=== PATIENT | male | born 1960 | race Caucasian/White ===

== ENCOUNTER → 2024-01-01 06:31 | Day surgery (SDC) | payer OTHER, SELFPAY | LOC: GI 06:31 | PROVIDERS: ATTENDING PHYSICIAN Specialist | DX: Z12.11 Encounter for screening for malignant neoplasm of colon (principal); Z86.010 Personal history of colon polyps; K57.30 Diverticulosis of large intestine without perforation or abscess without bleeding | CPT/HCPCS: 45380; 88305 ==

== ENCOUNTER → 2024-09-10 09:28 | Outpatient (REF) | payer OTHER, SELFPAY | LOC: RCS 09:28 | PROVIDERS: ATTENDING PHYSICIAN Internal Medicine Interventional Cardiology; FAMILY PHYSICIAN Physician Assistant Medical | DX: I35.0 Nonrheumatic aortic (valve) stenosis (principal) | CPT/HCPCS: 93306 ==

== ENCOUNTER 2024-12-04 11:32 | Emergency (ER) | payer OTHER, SELFPAY ==
[2024-12-04 11:36] VITALS: BP 157/111
--- NOTE | 2024-12-04 12:23 | ED.GENMED ---
History of Present Illness
General
Chief Complaint: Musculo-Skeletal Complaint
Source: patient
Exam Limitations: none
Time Seen by Provider: 12/04/24 12:07
History of Present Illness
History of Present Illness:
64yoM with a history of coronary artery disease presenting for evaluation of right foot pain x 2 days. Patient woke up 2 days ago and noticed pain in the back of his heel. He denies any trauma to the area. He returned home yesterday from a
conference in [place]. He admits to increased walking during his trip and was walking on the beach so is unsure if that might have tweaked something. The pain is worst with the first step in the morning and gradually improves with ambulation. He has
been using Tylenol and ice with some relief. No leg swelling or calf pain.
Past History
Past History
ED Past Medical History: GERD, HTN, Hypercholesterolemia and MT
ED Past Surgical History: None and Orthopedic (left ankle fracture)
Social History
Personal:
Living: with family
Employment: Employed
Phy Exam
General Physical Exam
General Presentation: well appearing and no apparent distress
General age: appears stated age
General Skin: warm and dry
General Habitus: normal
General Mental: alert
ENT Exam
ENT Exam: normocephalic
Neurological Exam
Neurological Exam: alert
Musculoskeletal Exam
Musculoskeletal Exam: other (R foot: There is tenderness posterior to the lateral malleolus with mild swelling. No skin changes. No tenderness of Achilles. ROM of ankle normal although pain is elicited with dorsiflexion. 2+ DP pulse and sensation
intact. )
Skin Exam
Skin Exam: normal color and warm/dry
Psychiatric Exam
Psychiatric Exam: normal mood/affect
Course
Orders/Labs/Results
Orders:
Orders
12/04/24 11:41
Foot, Right 3 View [CR Foot - Right Min 3 Views] Urgent
Comment:
Reason For Exam: pain
Vital Signs
Initial and Last Documented VS:
Initial Vital Signs
Temp Pulse Resp BP Pulse Ox
98.4 F 70 18 157/111 98
12/04/24 11:36 12/04/24 11:36 12/04/24 11:36 12/04/24 11:36 12/04/24 11:36
Last Documented Vital Signs
Temp Pulse Resp BP Pulse Ox
98.4 F 70 16 157/111 98
12/04/24 11:36 12/04/24 11:36 12/04/24 13:14 12/04/24 11:36 12/04/24 11:36
MDM/Problems Addressed
Differential Diagnosis Includes:
64yoM here with R heel pain x 2 days. Denies trauma but was walking a lot on a trip to [place]. There is tenderness and mild swelling posterior to the lateral malleolus. He denies calf pain and there is no pitting edema on exam. RLE is
neurovascularly intact. Differential diagnosis includes: fracture, sprain, tendonitis, plantar fasciitis
X-rays of R foot obtained which appear normal per my interpretation. Suspect tendonitis vs. plantar fasciitis. Supportive care discussed including rest, ice, elevation, and PRN Tylenol. Advised f/u with podiatry. Patient discharged in stable
condition.
*Critical Care Note
Total Time (30-74mins, 75-104mins- exclusive of procedures): Not Applicable
ED Attending Note
-
Portions of this chart may have been created with voice recognition software.� Occasional wrong word or��sound alike� substitutions may have occurred due to the inherent limitations of voice recognition software.
Discharge Plan
Departure
Patient Disposition: Home (Routine Discharge)
Date of Disposition: 12/04/24
Time of Disposition: 14:02
Patient with high blood pressure during this ER visit?: Yes
Discharge Problem:
Pain of right heel
Instructions: Plantar fasciitis
Prescriptions:
No Action
carvedilol 6.25 MG tablet
6.25 mg PO BID
aspirin 81 MG tablet,delayed release (DR/EC)
81 mg PO DAILY Qty: 0 0RF
lisinopril 20 mg Tablet
20 mg PO BID
ezetimibe [Zetia] 10 mg Tablet
10 mg PO DAILY
Brilinta 90 mg Tablet
90 mg PO BID Qty: 180 5RF
nitroglycerin 0.4 mg Tablet, Sublingual
0.4 mg sublingual [id number] PRN (Reason: chest pain) Qty: 25 5RF
atorvastatin 80 MG tablet
80 mg PO QPM Qty: 30 6RF
Referrals:
Syl Ramsey PA-C [Family Provider] -
Negriot Lowery DPM [Active] -
Activity Restrictions/Additional Instructions:
Rest your foot, elevate, ice, and avoid aggravating activities. Take Tylenol as needed for pain.
Please follow-up with podiatry.
Interventions
Interventions:
*Risk Screen - Suicide Last Done: 12/04/24 11:36
*General Assessment Last Done: 12/04/24 11:36
*Neglect/Abuse Screening Last Done: 12/04/24 11:36
ED- Fall Risk Assessment Last Done: 12/04/24 14:12
*ED COVID-19 Vaccine History Last Done: 12/04/24 13:14
*Nursing Disposition Last Done: 12/04/24 14:12
ED-Musculoskeletal Assessment Last Done: 12/04/24 13:12
Discharge Date and Time
Discharge Date/Time: 12/04/24 14:13
Print Language: RUSSIAN
== END 2024-12-04 14:13 | disposition home or self-care (01) ==
LOC: EMR 11:32
PROVIDERS: EMERGENCY PHYSICIAN Student in an Organized Health Care Education/Training Program; FAMILY PHYSICIAN Physician Assistant Medical
DX: M79.671 Pain in right foot (principal); I25.10 Atherosclerotic heart disease of native coronary artery without angina pectoris; I10 Essential (primary) hypertension; K21.9 Gastro-esophageal reflux disease without esophagitis; E78.00 Pure hypercholesterolemia, unspecified; I25.2 Old myocardial infarction
CPT/HCPCS: 99283; 73630

== ENCOUNTER → 2025-06-01 11:01 | Outpatient (REF) | payer MEDICARE, OTHER, SELFPAY | LOC: HWRAD 11:01 | PROVIDERS: ATTENDING PHYSICIAN Family Medicine | DX: M54.50 Low back pain, unspecified (principal) | CPT/HCPCS: 72110 ==

== ENCOUNTER 2025-06-28 17:49 | Emergency (ER) | payer MEDICARE, OTHER, SELFPAY ==
[2025-06-28 17:54] VITALS: BP 157/106
[2025-06-28 18:18] LABS: Hematocrit 44.4 % (39.0-52.0); Hemoglobin 15.3 g/dL (13.0-18.0); Mean Corp Hgb Conc. 34.5 g/dL (33.0-37.0); Mean Corpuscular Volume 87.4 fL (80.0-94.0); Nucleated Red Blood Cells % 0 % (-); Platelet Count 250 10^3/uL (130-400); Red Cell Dist. Width 12.6 % (11.5-14.5)
[2025-06-28 18:46] LABS: ALT (SGPT) 43 U/L (0-50); AST (SGOT) 27 U/L (17-59); Albumin 4.4 g/dl (3.5-5.0); Alkaline Phosphatase 86 U/L (38-126); Blood Urea Nitrogen 15 mg/dl (9-20); Calcium 9.5 mg/dl (8.4-10.2); Carbon Dioxide 26 mmol/L (22-30); Chloride 100 mmol/L (98-107); Glucose 109 mg/dl (70-99); Potassium 4.4 mmol/L (3.5-5.1); Sodium 132 mmol/L (135-145); Total Protein 7.3 g/dl (6.3-8.2); eGFR > 60.00
[2025-06-28 18:58] VITALS: BMI 28.4
[2025-06-28 18:58] LABS: Troponin I < 0.012 ng/ml
[2025-06-28 19:01] VITALS: BP 177/94
[2025-06-28 19:13] VITALS: BP 166/95
[2025-06-28 20:00] VITALS: BP 138/93
--- NOTE | 2025-06-28 20:33 | ED.GENMED ---
History of Present Illness
General
Chief Complaint: Blood Pressure Problem
Source: patient
Exam Limitations: none
Time Seen by Provider: 06/28/25 20:30
Nursing documentation reviewed up to this point in time: agreed with
History of Present Illness
History of Present Illness:
The patient is a pleasant 65-year-old man with a past medical history of coronary artery disease and high blood pressure who reports that earlier today when he was in the [place], he experienced lightheadedness, sweating and shaking chills. He
reports that he took his blood pressure and the systolic was in the 180s, which is extremely high for him. He reports he did not have any chest pain at the time. He did not experience any shortness of breath. He denies any vision changes. He
reports a mild headache but nothing concerning. He denies weakness and numbness. Patient reports that a few days ago he had 1 day of multiple episodes of watery diarrhea without blood or mucus. At the time, he reports lower abdominal pains and
bloating. He reports there is a good chance he is dehydrated but he is now able to eat and drink. Patient reports he is also under tremendous stress, as he recently decided to separate from his spouse. Patient reports a month ago his pancreas
enzyme was found to be elevated so he is requesting that we check it. However, he denies current abdominal pain, nausea and vomiting.
Past History
Past History
ED Past Medical History: CAD, GERD, HTN, Hypercholesterolemia and MD
ED Past Surgical History: Orthopedic (left ankle fracture)
Social History
Tobacco: Non-smoker
Alcohol: Other
Drug: None
Personal: Other
Living: with family
Employment: Employed
Family History
Family History: Other
Review of Systems
Review of Systems
Allergies reviewed?: Yes
All Other Systems: ROS reviewed and negative except as documented in HPI and ROS
Constitutional: Reports no symptoms
EENT: Reports no symptoms
Respiratory: Reports no symptoms
Cardiac: Reports no symptoms and other (Lightheadedness)
ABD/GI: Reports abdominal pain and diarrhea
: Reports no symptoms
Musculoskeletal: Reports no symptoms
Skin: Reports no symptoms
Neurological: Reports no symptoms
Endocrine: Reports no symptoms
Hematologic/Lymphatic: Reports no symptoms
Psychiatric: Reports no symptoms
Phy Exam
Physical Exam
Physical Exam:
Physical Exam
General: no apparent distress, not acutely ill. Uncomfortable appearing
Neck: supple. no meningeal signs. normal psoterior pharynx
Heart: s1/s2 regular rate and rhythm, no murmur. equal radial pulses.
Lungs: no acute respiratory distress. clear bilaterally
Abdomen: normal bowel sounds. not tender. no CVAT
Neuro: alert and oriented. no focal neurological deficits, steady gait. 5 out of 5 strength in all extremities. Extraocular muscles intact
Skin: no rash
Psychiatric: well kept. interactive and cooperative
Extremities: no edema. no calf tenderness. negative homans. good distal pulses
Course
Orders/Labs/Results
Orders:
Orders
06/28/25 17:59
ECG [Electrocardiogram (*1)] Urgent
Reason for Study: Other
Other Reason for Exam: elevated BP
EKG- Treatment ONCE
06/28/25 18:10
Complete Blood Count/With Diff Urgent
06/28/25 18:11
Comprehensive Metabolic Panel Urgent
Lipase Urgent
Comment: ADD ON
Troponin I Urgent
06/28/25 20:45
Add On- LAB Urgent
Tests Added?: lipase
Abnormal Lab Results
06/28/25 06/28/25
18:10 18:11
Lymphocytes % 17.7 L %
(20.5-51.1)
Sodium 132 L mmol/L
(135-145)
Glucose 109 H mg/dl
(70-99)
06/28/25 18:10
08/19/25 18:11
Vital Signs
Initial and Last Documented VS:
Initial Vital Signs
Temp Pulse Resp BP Pulse Ox
97.7 F 67 15 157/106 100
06/28/25 17:54 06/28/25 17:54 06/28/25 17:54 06/28/25 17:54 06/28/25 17:54
Last Documented Vital Signs
Temp Pulse Resp BP Pulse Ox
98.3 F 68 23 138/93 100
06/28/25 19:01 06/28/25 20:45 06/28/25 20:45 06/28/25 20:00 06/28/25 20:45
MDM/Problems Addressed
Differential Diagnosis Includes:
Acute hypertension, acute hypertensive with hypertensive urgency, acute dehydration with vasovagal reaction
MDM/Problems Addressed:
Patient presents with acutely elevated blood pressure, with resolved lightheadedness and diarrhea
Acute Exacerbation and/or Progression of Chronic Illness:
Patient may have acute exacerbation of coronary artery disease, however, his EKG does not appear ischemic and his troponin is negative so coronary artery disease appears stable
Acute Exacerbation and/or Progression of Chronic Illness: CAD
*Pulse Oximetry
SaO2: 100
Oxygen Mode of Delivery: Room air
Patient hypoxic: no
*EKG
Interpreted by ED Provider?: Yes
Interpretation: normal
Comparison EKG: no changes
Rate: bradycardiac
Rhythm: sinus
[place]: left axis deviation
Interval: normal interval
QRS Pattern: normal QRS
Ischemia: no ischemia
*Department [employer] Chair Interpretation
Rate: normal
Interpretation: normal
Rhythm: sinus
*Critical Care Note
Total Time (30-74mins, 75-104mins- exclusive of procedures): Not Applicable
Data Reviewed
Review of Other/Old Records Reveals: Testing (Cardiac echo in 2023 showed EF of 61%)
Source: patient and family
Patient Management
Social determinants of health affecting care: Living situation and Strong social support
Escalation/DeEscalation of care consider admission/obs:
Patient reports he feels well and comfortable. He did not have any chest pain. Dizziness was described as lightheadedness and there is no symptom or sign to suggest stroke. Blood pressure improved. Patient encouraged to drink fluids to raise
sodium.
ED Attending Note
-
Portions of this chart may have been created with voice recognition software.� Occasional wrong word or��sound alike� substitutions may have occurred due to the inherent limitations of voice recognition software.
Discharge Plan
Departure
Patient Disposition: Home (Routine Discharge)
Date of Disposition: 06/28/25
Time of Disposition: 20:46
Patient with high blood pressure during this ER visit?: Yes
Condition: Good
Covid-19: Not Applicable
Discharge Problem:
BP (high blood pressure), Acute hyponatremia
Instructions: High Blood Pressure (DC), Dehydration in adults - ED discharge instructions, BLOOD PRESSURE
Prescriptions:
No Action
carvedilol 6.25 MG tablet
6.25 mg PO BID
aspirin 81 MG tablet,delayed release (DR/EC)
81 mg PO DAILY Qty: 0 0RF
lisinopril 20 mg Tablet
20 mg PO BID
ezetimibe [Zetia] 10 mg Tablet
10 mg PO DAILY
Brilinta 90 mg Tablet
90 mg PO BID Qty: 180 5RF
nitroglycerin 0.4 mg Tablet, Sublingual
0.4 mg sublingual [id number] PRN (Reason: chest pain) Qty: 25 5RF
atorvastatin 80 MG tablet
80 mg PO QPM Qty: 30 6RF
Referrals:
Syl Ramsey PA-C [Family Provider, Family Practice]
Activity Restrictions/Additional Instructions:
Please follow-up with your doctor in about 1 week to have your blood pressure rechecked. Please make sure to drink lots of fluids, as your blood work showed low sodium, likely due to dehydration.
Interventions
Interventions:
*Risk Screen - Suicide Last Done: 06/28/25 17:58
*General Assessment Last Done: 06/28/25 17:58
*Neglect/Abuse Screening Last Done: 06/28/25 18:59
*ED- Fall Risk Assessment Last Done: 06/28/25 18:59
*ED COVID-19 Vaccine History Last Done: 06/28/25 18:59
*Nursing Disposition Last Done: 06/28/25 20:51
ED- Cardiac Assessment Last Done: 06/28/25 19:05
ED- Neurological Assessment Last Done: 06/28/25 19:05
ED- Pulmonary Assessment Last Done: 06/28/25 19:05
Discharge Date and Time
Discharge Date/Time: 06/28/25 20:53
Print Language: ROMANIAN
[2025-06-28 21:22] LABS: Lipase 270 U/L (23-300)
== END 2025-06-28 20:53 | disposition home or self-care (01) ==
LOC: EMR 17:49
PROVIDERS: Student in an Organized Health Care Education/Training Program; EMERGENCY PHYSICIAN Emergency Medicine; FAMILY PHYSICIAN Physician Assistant Medical
DX: E87.1 Hypo-osmolality and hyponatremia (principal); I10 Essential (primary) hypertension; E78.00 Pure hypercholesterolemia, unspecified; I25.10 Atherosclerotic heart disease of native coronary artery without angina pectoris
CPT/HCPCS: 99284; 80053; 83690; 84484; 85025; 93005

== ENCOUNTER → 2025-07-07 07:06 | Outpatient (REF) | payer MEDICARE, OTHER, SELFPAY | LOC: PAVMRI 07:06 | PROVIDERS: ATTENDING PHYSICIAN Physician Assistant Medical | DX: M54.59 Other low back pain (principal) | CPT/HCPCS: 72148 ==